=== PATIENT | female | born 1970 | race Caucasian/White ===

== ENCOUNTER 2018-12-12 16:37 | Inpatient (IN) ==
[2018-12-12] MEDS ORDERED: ASPIRIN PO ONE (16:43)
--- NOTE | 2018-12-12 17:28 | EKG Report ---
Test Performed on : 12/12/2018 4:48:25 PM Test Reason : chest pain Blood Pressure : / mmHG Vent. Rate : 069 BPM Atrial Rate : 069 BPM P-R Int : 148 ms QRS Dur : 078 ms QT Int : 398 ms P-R-T Axes : 062 016 032 degrees QTc Int : 426 ms Normal sinus rhythm. Normal ECG When compared with ECG of 19-JUN-2018 11:52, No significant change was found Unconfirmed Result
[2018-12-12 17:32] LABS: BASO# 0.04 X1000 (0.0-0.2); BASO% 0.4 % (0.0-0.8); EOS# 0.09 X1000 (0.0-0.7); EOS% 0.9 % (0.0-10.0); HEMOGLOBIN 11.6 g/dL (12.0-16.0); IMM GRAN# 0.02 X1000 (0.0-0.04); IMM GRAN% 0.2 % (0.0-0.5); LYMPH# 2.38 X1000 (1.2-3.4); LYMPH% 23.9 % (20.5-51.1); MCH 25.6 PG (27-31); MCHC 31.4 g/dL (33-37); MCV 81.5 FL (81-99); MPV 10.7 FL (7.4-10.4); NEUT# 6.62 X1000 (1.4-6.5); NEUT% 66.6 % (42.2-75.2); PLT 291 X1000 (130-400); RBC 4.54 XMIL (4.2-5.4); RDW 14.4 % (11.5-14.5); WBC 9.95 X1000 (4.8-10.8)
[2018-12-12 17:38] LABS: INR 0.95; PROTIME 13.2 Seconds (11.0-16.0); PTT 26.1 Seconds (22.3-41.8)
[2018-12-12 17:45] LABS: AGAP 12; ALBUMIN 4.3 g/dL (3.5-5.0); ALKALINE PHOSPHATASE 81 U/L (32-104); BUN 10 mg/dL (8-22); CALCIUM 9.6 mg/dL (8.8-10.2); CHLORIDE 98 mmol/L (98-107); CK PROFILE 43 U/L (24-173); COSMO 272; CREATININE 0.8 mg/dL (0.5-0.9); ESTIMATED GFR > 60; GLUCOSE 175 mg/dL (70-104); GOT 11 U/L (10-30); GPT 7 U/L (10-36); POTASSIUM 4.1 mmol/L (3.5-5.1); SODIUM 134 mmol/L (136-145); TCO2 23 mmol/L (25-35); TOTAL PROTEIN 7.3 g/dL (6.3-8.3)
[2018-12-12] MEDS ORDERED: PROTONIX IV ONE (18:17)
[2018-12-12] MEDS ORDERED: G.I. COCKTAIL PO ONE (18:17)
[2018-12-12] MEDS ORDERED: SODIUM CHLORIDE 0.9% INJ ONE (18:17)
--- NOTE | 2018-12-12 18:28 | PROVIDER DOCUMENTATION ---
This chart was entered by Reginaldo Cope Scribe, acting as scribe for Shameka Rowe MD. HPI-Chest Pain - General Chief Complaint: Chest Pain Stated Complaint: DIZZY / HEADACHE / CHEST PAIN Time Seen by Provider: 12/12/18 16:59 Source: patient, family Allergies/Adverse Reactions: Patient Allergies Allergy/AdvReac Type Severity Reaction Status Date / Time No Known Allergies Allergy Verified 12/12/18 16:42 Home Medications: Home Medication List Medication Instructions Recorded Confirmed Last Taken Type Venlafaxine [Effexor] 75 mg PO BID 11/01/14 12/12/18 10/11/17 History Furosemide [Lasix] 20 mg PO BID 03/23/16 12/12/18 10/10/17 History Estradiol 2 mg PO QAM 11/01/16 12/12/18 10/10/17 History Omeprazole 40 mg PO QAM 11/01/16 12/12/18 04/25/17 11:00 History 40 Sucralfate 1 gm PO 4XDAY 11/01/16 12/12/18 04/25/17 11:00 History 1 Tizanidine [Zanaflex] 2 mg PO Q4HR 11/01/16 12/12/18 10/10/17 History Polyethylene Glycol 3350 [Miralax] 17 gm PO PRN PRN 12/09/16 12/12/18 04/25/17 11:00 History 17 Albuterol Sulfate Inhaler 2 puff INH Q6H PRN PRN #1 inhaler 02/10/17 12/12/18 04/19/17 Rx [Ventolin Hfa] Ferrous Sulfate [Feosol] 325 mg PO DAILY #30 tab 10/03/17 12/12/18 Unknown Rx Cyanocobalamin/Cobamamide [B12 1,000 mg PO DAILY 10/11/17 12/12/18 10/10/17 History 5,000 Mcg Microlozenge] Duloxetine [Cymbalta] 60 mg PO DAILY 10/11/17 12/12/18 10/10/17 History Buprenorphine/Naloxone S.l. 1 ea SL BID #60 strip 10/14/17 12/12/18 Unknown Rx [Suboxone 8 mg/2 mg] Quetiapine [Seroquel] 1 tab PO QHS 06/19/18 12/12/18 Unknown History - History of Present Illness-CP Nature of Presenting Problem: 48 yof presents to the ed with c/o chest pains,SOB(sweating) and headache. pt stated " the chest pains started 11 am this morning and SOB and sweating episode started 2 pm this afternoon." pt stated " Chest pains (6-7 on pain scale) in my Lt shoulder (feels like its at my bone really deep) like sharp, stabbing feeling." pt states " headache started week ago( pain on top of my head) ,pt states then it was 3 weeks ago went away went to my pcp to report it had went away and then woke up next day it was back ." pt states "headache is constant throbbing(8-9 on pain level)." pt states " having blurry vision with headaches." pt states" neck pain is at the base of my head." pt states" on the way down here i was coughing but haven't since." pt states having IVC filter in 2002 after weight loss surgery, pt states having 7 abdominals surgeries, Lt wrist surgery for it being broken also with carpel tunnel surgery . pt has hx of blood clots. Location: reports: shoulder (Left) Chest Pain Radiation: reports: no radiation Quality of Pain: reports: sharp, stabbing Severity in ED: mild Onset/Duration: 1 week ago (headache stated by pt started), this morning (pt states chest pains started 11 am), this afternoon (pt states sweating and SOB started 2 pm) Timing: still present Context/Activities at Onset: reports: none Modifying Factors: improves with: nothing Associated Symptoms: reports: dizziness, headache, shortness of breath. denies: back pain, nausea, rash, vomiting Nitro Today/Relief: no nitro taken today Aspirin Treatment Today: no aspirin today Prior Chest Pain/Cardiac Workup: reports: no prior chest pain Similar Symptoms Previously?: No Recently Seen Here or By Another Healthcare Provider: No Review of Systems - Adult - REVIEW OF SYSTEMS - ADULT Constitutional: reports: see HPI. denies: chills, fever Eyes: reports: see HPI, blurred vision. denies: discharge, eye pain Ears, Nose, Mouth & Throat: reports: no symptoms reported Cardiovascular: reports: see HPI, chest pain. denies: heart murmur, palpitations, syncope Respiratory: reports: see HPI, cough, shortness of breath. denies: dyspnea on exertion, wheezing Gastrointestinal: denies: abdominal pain, diarrhea, nausea, vomiting Genitourinary: reports: no symptoms reported Musculoskeletal: reports: see HPI, neck pain (base of head reported by pt). denies: back pain, muscle weakness Integumentary: reports: no symptoms reported Neurological: reports: see HPI, headache/migraines. denies: numbness, slurred speech, syncope Psychiatric: reports: no symptoms reported Endocrine: reports: no symptoms reported Hematologic/Lymphatic: reports: no symptoms reported Allergic/Immunologic: reports: no symptoms reported All Other Systems: Reviewed and Negative Past History - Adult - PAST MEDICAL HISTORY-ADULT Review of Records: reports: Old Records Reviewed, Nursing Assessment Review, Medications Reviewed, Social history reviewed & non-contributory. Major Childhood Illnesses: reports: denies history Cardiovascular: reports: HTN, hyperlipidemia Respiratory: reports: denies history Gastrointestinal: reports: GERD, obstruction, other (hernia) Obstetrical/Gynecological: reports: denies history Genitourinary: reports: denies history Musculoskeletal: reports: arthritis, chronic pain, osteoporosis Neurological: reports: denies history Psychiatric: reports: anxiety, depression Endocrine/Immune: reports: Diabetes Other Conditions: reports: denies history Additional History: depression - PRIOR SURGERIES/PROCEDURES Surgical/Procedure History: reports: appendectomy, cholecystectomy, BTL, C- section, hernia repair (2011), bowel surgery (gastric bypass), gastric bypass - PRIOR HOSPITALIZATIONS Prior Hospitalizations: reports: for other non-related - IMMUNIZATION STATUS Childhood Immunizations: See Nurse Assessment Flu Vaccine: See Nurse Assessment - FAMILY HISTORY Family History: reviewed, not pertinent - SOCIAL HISTORY Smoking: denies Substance Use: alcohol Alcohol Use Frequency: occasionally Living Situation: family Physical Exam-General - PHYSICAL EXAM-ADULT Initial Vital Signs Reviewed: Yes - CONSTITUTIONAL General Appearance: appears well, alert, moderate distress, obese. negative: lethargic, slow to respond - EYES Eyes: PERRL/EOMI - HEAD, EARS, NOSE, MOUTH & THROAT HENMT: moist mucous membranes, normal ENT inspection, TMs normal - NECK Neck: non-tender, full range of motion, supple - RESPIRATORY Respiratory: chest non-tender, lungs clear, normal breath sounds, no pleuratic chest pain, no respiratory distress, no accessory muscle use - CARDIOVASCULAR Cardiovascular: normal peripheral pulses, regular rate, rhythm, no edema, no gallop, no JVD, no murmur - CHEST (BREASTS) Chest/Breast: deferred - GASTROINTESTINAL (ABDOMEN) Abdominal Exam: normal bowel sounds, non tender, soft, no organomegaly, no pulsatile mass - GENITOURINARY Female Genitalia/Pelvic Exam: deferred Rectal Exam: deferred Hemoccult Exam: deferred - LYMPHATIC Lymphatic: no adenopathy - MUSCULOSKELETAL Back Exam: normal inspection, no CVA tenderness, no vertebral tenderness Extremity: normal range of motion, non-tender, normal gait, normal inspection, no pedal edema, no calf tenderness - SKIN Integumentary: normal color, normal turgor, warm/dry - NEUROLOGIC Neurologic: grossly normal, no motor/sensory deficits - PSYCHIATRIC Psych/Mental Status: normal mood/affect, normal thought content, normal thought process, oriented x 3 - HEART Score HEART Score: History: Moderately Suspicious HEART Score: ECG: Normal HEART Score: Age: 45-65 Years HEART Score: Risk Factors for Atherosclerotic Disease: 1 or 2 Risk Factors HEART Score: Troponin: < or = Normal Limit Total HEART Score:: 3 Progress - PLAN OF CARE/RESULTS Progress/Plan/Lab Results: Vital Signs - 8 hr 12/12/18 16:40 Temperature 97.3 F L Pulse Rate 88 Respiratory Rate 18 Blood Pressure 89/63 O2 Sat by Pulse Oximetry 99 Laboratory Results - last 24 hr 12/12/18 12/12/18 12/12/18 17:00 17:00 17:00 WBC 9.95 RBC 4.54 Hgb 11.6 L Hct 37.0 MCV 81.5 MCH 25.6 L MCHC 31.4 L RDW Std Deviation 14.4 Plt Count 291 MPV 10.7 H Immature Gran % (Auto) 0.2 Neut % (Auto) 66.6 Lymph % (Auto) 23.9 Norman % (Auto) 8.0 Eos % (Auto) 0.9 Baso % (Auto) 0.4 Immature Gran # (Auto) 0.02 Neut # (Auto) 6.62 H Lymph # (Auto) 2.38 Norman # (Auto) 0.80 H Eos # (Auto) 0.09 Baso # (Auto) 0.04 PT INR PTT (Actin FS) D-Dimer, Quantitative Sodium 134 L Potassium 4.1 Chloride 98 Carbon Dioxide 23 L Anion Gap 12 BUN 10 Creatinine 0.8 Estimated GFR/1.73 m2 > 60 BUN/Creatinine Ratio 13 Glucose 175 H Calculated Osmolality 272 Calcium 9.6 Total Bilirubin 0.30 AST 11 ALT 7 L Alkaline Phosphatase 81 Creatine Kinase 43 Troponin T Lgx-F-Uahujfynaje Pept 322 H Total Protein 7.3 Albumin 4.3 Globulin 3.0 Albumin/Globulin Ratio 1.0 12/12/18 12/12/18 12/12/18 17:00 17:00 17:00 WBC RBC Hgb Hct MCV MCH MCHC RDW Std Deviation Plt Count MPV Immature Gran % (Auto) Neut % (Auto) Lymph % (Auto) Norman % (Auto) Eos % (Auto) Baso % (Auto) Immature Gran # (Auto) Neut # (Auto) Lymph # (Auto) Norman # (Auto) Eos # (Auto) Baso # (Auto) PT 13.2 INR 0.95 PTT (Actin FS) 26.1 D-Dimer, Quantitative 0.35 Sodium Potassium Chloride Carbon Dioxide Anion Gap BUN Creatinine Estimated GFR/1.73 m2 BUN/Creatinine Ratio Glucose Calculated Osmolality Calcium Total Bilirubin AST ALT Alkaline Phosphatase Creatine Kinase Troponin T < 0.010 Tco-R-Nvnxsswdsar Pept Total Protein Albumin Globulin Albumin/Globulin Ratio Orders Category Date Time Status Cardiac Monitoring DIRECTED Care 12/12/18 16:43 Active Oxygen Therapy- ED Nursing DIRECTED Care 12/12/18 16:43 Active Saline Loc NOW Care 12/12/18 16:43 Active CHEST-2 VIEWS [RAD] Stat Exams 12/12/18 16:43 Taken CBC WITH ELECTRONIC DIFF [HEME] Stat Lab 12/12/18 17:00 Completed CK PROFILE [SP CHEM] Stat Lab 12/12/18 17:00 Completed COMPREHENSIVE METABOLIC PANEL [CHEM] Stat Lab 12/12/18 17:00 Completed D-DIMER [COAG] Stat Lab 12/12/18 17:00 Completed PRO B-NATRIURETIC PEPTIDE Stat Lab 12/12/18 17:00 Completed PROTIME WITH INR [COAG] Stat Lab 12/12/18 17:00 Completed PTT [COAG] Stat Lab 12/12/18 17:00 Completed TROPONIN T Stat Lab 12/12/18 17:00 Completed Aspirin Med 12/12/18 16:43 Discontinued 325 mg PO NOW ONE Lido/Alvares Alk/Al&mg Hydrox [G.i. Cocktail] Med 12/12/18 18:17 Discontinued 30 ml PO NOW ONE Pantoprazole [Protonix] Med 12/12/18 18:17 Discontinued 40 mg IV NOW ONE Sodium Chloride 0.9% Med 12/12/18 18:17 Discontinued 10 ml INJ NOW ONE CP/SOB/Palp >45 yrs of Age Stat Oth 12/12/18 16:43 Ordered EKG [EKG] Stat Ther 12/12/18 16:43 Draft Result Diagrams: 12/12/18 17:00 12/12/18 17:00 - EKG 1 Time of EKG reading by physician:: 16:48 EKG Read and Signed by:: Shameka Rowe EKG Interpretation (*Must complete 3 of following elements*): Normal Rate: 69 Rhythm: NSR [place]: normal QRS: normal CO Interval: normal ST Wave: normal - CONSULTS/PCP/HOSPITALIST Notification #1 *Consult/PCP/Hospitalist*: d/w Dr Dailey Time Discussed: 18:24 Consult Disposition: Admit Departure - Departure Date of Disposition Decision: 12/12/18 Time of Disposition Decision: 18:27 DIAGNOSIS: Chest pain, Dyspnea Disposition: ADMITTED INPATIENT 09 Certified Medical Emergency: Emergent Condition: Stable - Critical Care Note This patient required my direct & personal management of CC.: No Attestation - Physician/ PITER Attestation Patient care was provided by Advanced Practice Provider:: No The physician spent face to face time with patient:: Yes Advanced Practice Provider documentation review:: Supervising physician onsite and consulted in the evaluation and care of this patient. The physician did have a face to face encounter with the patient. This chart was documented by the indicated scribe, (Reginaldo Cope Scribe) and accurately reflects the services I performed and decisions made by me, Shameka Rowe MD, as attested by the provider's signature.
--- NOTE | 2018-12-12 19:13 | Diag Imaging Result Doc PS360 ---
EXAM: CHEST-2 VIEWS INDICATION: chest pain TECHNIQUE: 2 views COMPARISON: 06/19/2018 FINDINGS: The lungs are grossly clear. There is no discrete pleural fluid collection or pneumothorax. The cardiomediastinal silhouette and central vasculature are grossly unremarkable. IMPRESSION: No evidence of acute pathology by plain radiograph. Electronically signed by Almas Zendejas 12/12/2018 7:10 PM
--- NOTE | 2018-12-12 20:17 | Diag Imaging Result Doc PS360 ---
EXAM: CT HEAD W/O CONTRAST INDICATION: headache x1 week TECHNIQUE: This exam was performed using automated exposure control, adjustment of mA or kV according to patient size, and/or use of iterative reconstruction technique. COMPARISON: 05/26/2015 FINDINGS: There is no definite acute infarct given the limited sensitivity of CT versus MRI. There is no discrete intracranial mass, mass effect, or intracranial hemorrhage. The surrounding soft tissues and bony structures are essentially unremarkable. IMPRESSION: No evidence of acute intracranial pathology. Electronically signed by Almas Zendejas 12/12/2018 8:14 PM
[2018-12-12] MEDS: TYLENOL PO PRN (21:26)
[2018-12-13] MEDS: TYLENOL PO PRN ×2 (04:04→20:33)
[2018-12-13] MEDS ORDERED: SALINE LOCK IV FLUID XX ONE (07:29)
[2018-12-13] MEDS ORDERED: ZOFRAN IV PRN (07:29)
--- NOTE | 2018-12-13 07:59 | Diag Imaging Result Doc PS360 ---
EXAM: CT THORAX W/O CONTRAST - 12/12/2018 HISTORY: chest pain TECHNIQUE: CT thorax without contrast. No contrast administered per request of the referring provider. COMPARISON: 12/12/2018 chest radiographs FINDINGS: There are some scattered nonspecific small pulmonary nodular opacities measuring up to 4 mm. The lungs otherwise appear clear. There is no consolidation, pleural effusion, or pneumothorax identified. There are no abnormally enlarged mediastinal lymph nodes identified. The ascending aorta is ectatic up to 4 cm. There is no pericardial fluid identified. Included sections of upper abdomen show postsurgical changes of gastric bypass and cholecystectomy. IMPRESSION: Scattered nonspecific pulmonary nodular opacities measuring up to 4 mm. Follow-up per Fleischner Society guidelines is recommended. Ectatic ascending aorta 4 cm. No other evidence of acute disease in the thorax. The on-call radiologist provided preliminary results at 11:32 PM on 12/12/2018. This exam was performed using automated exposure control, adjustment of mA or kV according to patient size, and/or use of iterative reconstruction technique. Electronically signed by Raffi Paul 12/13/2018 7:56 AM
[2018-12-13] MEDS: TORADOL IV PRN ×3 (08:57→22:56)
[2018-12-13] MEDS: FIORICET PO PRN ×2 (08:58→20:32)
[2018-12-13] MEDS ORDERED: ASPIRIN PO SCH (09:00)
[2018-12-13 09:06] LABS: AGAP 10; BUN 10 mg/dL (8-22); CALCIUM 9.3 mg/dL (8.8-10.2); CHLORIDE 99 mmol/L (98-107); COSMO 270; CREATININE 0.8 mg/dL (0.5-0.9); ESTIMATED GFR > 60; GLUCOSE 173 mg/dL (70-104); MAGNESIUM 1.7 mg/dL (1.5-2.7); POTASSIUM 4.1 mmol/L (3.5-5.1); SODIUM 133 mmol/L (136-145); TCO2 24 mmol/L (25-35)
[2018-12-13 09:09] LABS: CHOLESTEROL 227 mg/dL (0-200); HDL 99 mg/dL (45-65); LDL 111 mg/dL; TRIGLYCERIDES 83 mg/dL (35-135); VLDL 17 mg/dL
--- NOTE | 2018-12-13 09:10 | EKG Report ---
Test Performed on : 12/13/2018 08:04:59 AM Test Reason : CP Blood Pressure : / mmHG Vent. Rate : 070 BPM Atrial Rate : 070 BPM P-R Int : 138 ms QRS Dur : 082 ms QT Int : 392 ms P-R-T Axes : 050 014 038 degrees QTc Int : 423 ms Normal sinus rhythm. Normal ECG When compared with ECG of 12-DEC-2018 16:48, (Unconfirmed) No significant change was found Confirmed by Lele Cerrato MD ([id number]) on 12/14/2018 9:12:15 PM
--- NOTE | 2018-12-13 09:37 | Diag Imaging Result Doc PS360 ---
EXAM: US AORTA - 12/13/2018 HISTORY: 4CM ectatic aorta on CT scan TECHNIQUE: Attempted ultrasound abdominal aorta COMPARISON: None. FINDINGS: The abdominal aorta is obscured by artifacts from bowel gas and body habitus. The abdominal aorta therefore is not evaluated. IMPRESSION: The abdominal aorta is not evaluated due to obscuration by artifacts. Electronically signed by Raffi Paul 12/13/2018 9:34 AM
--- NOTE | 2018-12-13 11:36 | HISTORY AND PHYSICAL ---
PRIMARY CARE PROVIDER: BENOIT Shelby. CHIEF COMPLAINT: Chest pain, shortness of breath, headache. HISTORY OF PRESENT ILLNESS: Ms Castro is a 48-year-old female who carries a past medical history of diabetes mellitus type 2 who reports that is diet controlled, hypertension, she reports she had been on blood pressure medication in the past but it made her black out, so she was taken off. Chronic opiate abuse for which she is on Suboxone, depression, chronic back pain, morbid obesity, DVT with an inferior vena cava filter, came to the ED on 12/12/2018 complaining of chest pain, dizziness and headache for 2 days. She felt that the pain was on the left side of her chest and radiated to her left shoulder. She described it as sharp and heavy with associated diaphoresis, palpitation and dizziness. Nothing made the pain better or worse. It is constant. She also complained of a headache for 10 days that Tylenol was not relieving. Workup in the ED showed 3 sets of negative cardiac enzymes. Head CT showed no acute findings. Chest CT found an ectatic ascending aorta at 4 cm as well as nonspecific pulmonary nodular opacities measuring up to 4 mm. Aorta ultrasound could not be evaluated due to obscuration by artifacts. EKG shows normal sinus rhythm. Her chest CT imaging was pushed through the PACS system at [facility]. Her imaging was reviewed by Dr. Mayberry. There is no surgical need at this time, but they do want to follow up with her closely. We have faxed them a face sheet and they will call her for an appointment time and they recommend that she follow up closely with Cardiology as well and having Dr. Atkins review her imaging. After speaking with Dr. Atkins, he has gone over her previous stress test, echos and left heart catheterization at [facility] that reveals no coronary disease, recommends that we follow other avenues such as GI workup. We will continue with further treatment and evaluation and place her on treatment for her probable migraines. PAST MEDICAL HISTORY: 1. Diabetes mellitus type 2, diet controlled. 2. Hypertension, claims no blood pressure medications secondary to blacking out. 3. Depression with a possible history of overdose in 2014. 4. Chronic back pain. The patient is now on Suboxone. 5. Morbid obesity status post open gastric bypass. 6. Right DVT status post inferior vena cava filter. PAST SURGICAL HISTORY: 1. section. 2. Laparoscopic cholecystectomy. 3. Open gastric bypass. 4. Umbilical hernia repair x2. 5. Exploratory laparotomy with lysis of adhesions. 6. She also reports having part of her bowel removed at [facility]. SOCIAL HISTORY: Lives with her , unemployed. No alcohol, tobacco, or illicit drug use. She lives in [place]. ALLERGIES: No known drug allergies. HOME MEDICATIONS: As per EMR. REVIEW OF SYSTEMS: Twelve-point review of systems complete and negative except for those mentioned in HPI. PHYSICAL EXAMINATION: VITAL SIGNS: Temperature is 98.5 degrees, heart rate 85, respirations 16, blood pressure 136/84, O2 is 100% on room air. GENERAL: Ms. Castro is a 48-year-old female who is lying in the bed, complaining of headache and constant left-sided chest pain that radiates to the left side of her shoulder, but she is in no acute distress. HEENT: Atraumatic, normocephalic. PERRL. NECK: Supple. Trachea midline. CARDIOVASCULAR: S1, S2 appreciated. No murmurs, gallops, rubs noted. RESPIRATORY: Lung sounds clear bilaterally. GASTROINTESTINAL: Soft, nontender, nondistended. Positive bowel sounds 4 quadrants. LOWER EXTREMITIES: Negative for edema. No clubbing, no cyanosis. NEUROLOGIC: No focal deficits noted. LABORATORY AND DIAGNOSTIC DATA: Per HPI. ASSESSMENT AND PLAN: 1. Left-sided chest pain in a patient who has had a full cardiac evaluation with echocardiogram, stress test, as well as left heart catheterization that all revealed normal coronary arteries. I have spoken with Dr. Atkins via phone. He has looked in all her imaging and heart catheterization from [facility]. They recommend to follow up with other avenues such as a GI follow-up given her extensive GI history. She has had 3 sets of normal cardiac enzymes as well as a recent echocardiogram back in June 2018. 2. Headache. She has been started on migraine medication. 3. Ectatic ascending aorta at 4 cm. Imaging was pushed through the PACS system to CV surgery at [facility] with Dr. Mcfarland. He has reviewed the imaging. He agrees that it does need close followup. No need for surgery. Continue to maintain blood pressure control. Have her follow up with a cylinder sander operator as well as her PCP. Given her history of hypertension and blacking out with blood pressure medications, this will need to be followed closely. 4. Pulmonary nodules found on CT imaging measuring up to 4 mm. Will also need continued followup with her primary with imaging. 5. Diabetes mellitus, diet controlled. 6. Depression. 7. Chronic back pain. 8. Morbid obesity status post open gastric bypass. 9. S/P open gastric bypass surgery seems she has had some complications after surgery requiring exploratory laparotomy, lysis of adhesions, and a probable bowel resection at [facility]. 10. Deep venous thrombosis status post inferior vena cava placement, I believe on the right side. 11. Gastroesophageal reflux disease. Per patient report, she has been eating her weight in Prilosec. We will talk with the on-call GI to see if she needs to be transferred to [facility] or if they prefer outpatient workup. Dictated by BENOIT Rodriguez for Fermín Roberts MD cc: MD Jennifer Saucedo CRNP MTDD
[2018-12-13] MEDS: HUMALOG (PARKWAY) SUBQ SCH ×3 (12:45→20:35)
[2018-12-13] MEDS ORDERED: NS 500 ML IV ONE (15:59)
[2018-12-13] MEDS: NS 1,000 ML IV SCH (18:08)
--- NOTE | 2018-12-13 19:55 | HISTORY AND PHYSICAL ---
ADDENDUM: Patient seen and examined by myself. Full note dictated and discussed with nurse practitioner. Patient presented to the hospital with chest pain, although this is reproducible in her midsternal area. It hurts when she takes a deep breath or when she moves her arm. She is also having a headache. We are going to try butalbital and see if this will help. She is on Suboxone, so she certainly does not need further pain medications. We will continue to follow her. If her symptoms resolve, possibly she can discharge home later this afternoon. cc: Fermín Roberts MD
--- NOTE | 2018-12-13 22:22 | EKG Report ---
Test Performed on : 12/13/2018 9:15:34 PM Test Reason : Bradycardia Blood Pressure : / mmHG Vent. Rate : 039 BPM Atrial Rate : 039 BPM P-R Int : 140 ms QRS Dur : 082 ms QT Int : 486 ms P-R-T Axes : 022 012 019 degrees QTc Int : 391 ms Marked sinus bradycardia. Abnormal ECG When compared with ECG of 13-DEC-2018 08:04, (Unconfirmed) Vent. rate has decreased BY 31 BPM Unconfirmed Result
[2018-12-14] MEDS: NS 1,000 ML IV SCH (03:13)
[2018-12-14] MEDS: PRILOSEC PO SCH ×2 (05:44→06:01)
[2018-12-14] MEDS: FIORICET PO PRN ×2 (06:13→10:39)
[2018-12-14] MEDS: TORADOL IV PRN (06:13)
[2018-12-14] MEDS: HUMALOG (PARKWAY) SUBQ SCH (06:14)
[2018-12-14 07:46] VITALS: BP 108/66
--- NOTE | 2018-12-14 13:24 | DISCHARGE SUMMARY ---
ADMISSION DATE: 12/12/2018 DISCHARGE DATE: 12/14/2018 CONSULTATIONS: 1. By phone only, Dr. Naveed Mayberry, CV surgery. 2. Dr. Atkins with Cardiology. 3. Dr. Leel Bragg with Gastroenterology. PERTINENT PROCEDURES: 1. Head CT no evidence of intracranial pathology. 2. Chest CT static ascending aorta at 4 cm. Scattered nonspecific pulmonary nodule opacities measuring up to 4 mm. No other evidence of acute pathology. 3. Abdominal ultrasound. Abdominal aorta is not evaluated due to obscuration by artifacts. DISCHARGE DIAGNOSES: 1. Left-sided chest pain in a patient who has had a full cardiac evaluation with echocardiogram, stress test and left heart catheterization back in June 2018 that all revealed normal coronary arteries. Spoke with Dr. Atkins via phone. Again, all her imaging is normal. They recommend to follow up with other avenues such as GI given her extensive GI history. She has had 3 sets of normal cardiac enzymes. 2. Headache. She was started on migraine headache medication that improved. 3. Ectatic ascending aorta at 4 cm. Imaging was pushed through to the PAC system to CV surgery at [facility] with Dr. Mayberry. He has reviewed the imaging. He does agree that needs close follow-up. No need for surgery at this time. Continue to maintain blood pressure control and have her follow up with a admeasurer to regulate her blood pressures. She does have a history of hypertension, but had to be taken off of secondary to blacking out episodes. 4. Pulmonary nodule found on CT imaging measured up to 4 mm. They recommend continued follow-up with imaging. 5. Diabetes mellitus, diet controlled. 6. Depression. 7. Chronic back pain. 8. Morbid obesity status post open gastric bypass with complications requiring exploratory laparotomy, lysis of adhesions, and a possible bowel resection at [facility]. 9. Gastroesophageal reflux disease. Patient reported she was eating her weight in over-the- counter Prilosec. I spoke with GI specialist, Dr. Bragg. He does recommend a full evaluation as an outpatient. HOSPITAL COURSE: Briefly, Ms. Castro is a 48-year-old female who carries a past medical history of diabetes mellitus type 2, diet controlled, hypertension that she reports she is not on any blood pressure medications secondary to blacking out, chronic opiate abuse - she is on Suboxone, depression, chronic pain, morbid obesity, DVT with inferior vena cava filter. She came to the ED on 12/12/2018, complaining of chest pain, dizziness and headache for 2 days. The pain was on the left side of her chest that radiated to her left shoulder. She described it as sharp and heavy with associated diaphoresis, palpitations, and dizziness. Nothing made the pain better or worse. It was constant. This pain was actually reproducible. She did complain of a headache that had been there for 10 days and Tylenol was not relieving it. Workup in the ED showed 3 sets of negative cardiac enzymes. Head CT did not show any acute findings. A CT scan that was performed happened show an ectatic ascending aorta 4 cm as well as nonspecific pulmonary nodular opacities measuring up to 4 mm. A follow-up aorta ultrasound was performed, but nothing could be seen secondary to artifacts. EKG showed normal sinus rhythm. We did, however, have imaging push through to [facility] CV surgery, no surgical recommendations at this time, but they did want to follow up with her closely. We did fax her information to them so they could call her for an appointment. Recommend cardiology follow-up to help regulate her blood pressures as well as spoke with Dr. Bragg over the phone for a GI workup that he recommends be done as an outpatient. VITAL SIGNS: At time of discharge, temperature is 99.7 degrees, heart rate 64, respirations 16, blood pressure 92/47, O2 is 96% on room air. DISCHARGE DIET: Diabetic. DISCHARGE MEDICATIONS: 1. Seroquel 100 mg p.o. at bedtime. 2. Zanaflex 2 mg p.o. q. 4 hours. 3. Vitamin B12 1000 mg p.o. daily. 4. Cymbalta 600 mg p.o. daily. 5. Effexor 75 mg p.o. b.i.d. 6. Estradiol 2 mg p.o. q.a.m. 7. Lasix 20 mg p.o. b.i.d. 8. MiraLAX 17 g p.o. p.r.n. constipation. 9. Prilosec 40 mg p.o. q.a.m. 10. Carafate 1 g p.o. 4 times a day. 11. FeroSul 325 mg p.o. daily. 12. Fioricet 1 each p.o. q. 4 hours p.r.n. migraines. 13. Suboxone 1 each sublingual b.i.d. 14. Ventolin inhaler 2 puffs inhaled q. 6 hours p.r.n. shortness of breath. FOLLOWUP: Ms. Castro is being discharged home for follow-up with CV services to watch and follow her aortic aneurysm. Dr. Bragg for full GI workup and Dr. Jennifer Miller to follow her pulmonary nodules as well as Cardiology to help regulate her blood pressures given her aortic aneurysm, and she can return to the ED or call 911 for any worsening of symptoms. Dictated by BENOIT Rodriguez for Fermín Roberts MD cc: Fermín Roberts MD [facility]
--- NOTE | 2018-12-15 09:03 | DISCHARGE SUMMARY ---
ADMISSION DATE: 12/12/2018 DISCHARGE DATE: 12/14/2018 ADDENDUM: Patient was seen and examined by myself. Full note dictated and discussed with nurse practitioner. On discharge, the patient is awake, alert. She is in no distress. She is feeling better. Notes that the butalbital helped her headache tremendously. Her chest pain is resolved and therefore we will discharge her home. Please see full note. cc: Fermín Roberts MD
== END 2018-12-14 11:10 | disposition home or self-care (01) | DRG 313 ==
LOC: P.ED 16:37 → P.MEDSURG 19:30 → SUATTDRO 19:30
PROVIDERS: ATTEND Family Medicine